=== PATIENT | female | born 1975 | race Caucasian/White ===

== ENCOUNTER 2016-04-25 01:05 | Emergency (ER) | payer OTHER | END 2016-04-25 05:15 | disposition home or self-care (01) | LOC: FER 01:05 | DX: J45.909 Unspecified asthma, uncomplicated (principal); I10 Essential (primary) hypertension; F17.210 Nicotine dependence, cigarettes, uncomplicated | CPT/HCPCS: 71020; 87450; 87804; 87899; 99283 ==